=== PATIENT | male | born 1965 | race African-American/Black ===

== ENCOUNTER 2017-05-01 09:06 | Emergency (ER) | payer MEDICARE, OTHER ==
[~2017-05-01] VITALS: Ht 195.6 cm; Wt 130.0 kg
[~2017-05-01 09:06] MED LIST: AMLO5TAB66 PO; CLON0.5T PO; FLUO20CA30 PO; VERA-7 PO
[2017-05-01] MEDS ORDERED: LISI-660 PO (09:15)
[2017-05-01] MEDS ORDERED: KETOROLAC TROMETHAMINE 30 MG/ML VIAL IVP ONE (10:30)
[2017-05-01] MEDS ORDERED: LORazepam 2 MG/ML VIAL IVP ONE (10:30)
[2017-05-01] MEDS ORDERED: IBUPROFEN 800 MG TABLET PO ONE (10:45)
[2017-05-01] MEDS ORDERED: LORazepam 1 MG TABLET PO ONE (10:45)
[2017-05-01 11:02] LABS: BASOPHILS % (AUTO) 0.1 % (0.0-2.0); HEMATOCRIT 38.4 % (41-53); HEMOGLOBIN 13.4 g/dL (13.5-17.5); LYMPHOCYTES # (AUTO) 2.3 K/uL (1.0-4.8); LYMPHOCYTES % (AUTO) 44.7 % (22.0-44.0); MEAN CORPUSCULAR HEMOGLOBIN 34.4 pg (26.0-34.0); MEAN CORPUSCULAR VOLUME 98 fL (80-100); MONOCYTES # (AUTO) 0.5 K/uL (0.1-1.0); MONOCYTES % (AUTO) 10.6 % (2.0-9.0); NEUTROPHILS # (AUTO) 2.3 K/uL (1.8-7.7); NEUTROPHILS % (AUTO) 43.6 % (40.0-70.0); PLATELET COUNT (AUTO) 204 K/uL (150-450); RED BLOOD CELL COUNT(AUTO) 3.91 MIL/uL (4.50-5.90); RED CELL DISTRIBUTION WIDTH 13.6 % (11.5-14.5)
[2017-05-01 11:06] LABS: ANION GAP 6 mmol/L (8-16); CALCIUM, TOTAL 8.6 mg/dL (8.8-10.5); CARBON DIOXIDE 33 mmol/L (22-29); CHLORIDE 105 mmol/L (98-107); CREATININE 1.03 mg/dL (0.60-1.30); GLOMERULAR FILTR. RATE CALC > 60 mL/min (>60); GLUCOSE,RANDOM 99 mg/dL (70-110); POTASSIUM 3.1 mmol/L (3.5-5.1); SODIUM SERUM 144 mmol/L (136-145); UREA NITROGEN, BLOOD 14 mg/dL (7-18)
[2017-05-01 11:13] LABS: PROTHROMBIN TIME 10.5 SEC (9.4-11.6)
[2017-05-01 11:30] LABS: ALANINE AMINOTRANSFERASE 32 U/L (12-78); ALBUMIN 3.7 g/dL (3.4-5.0); ALKALINE PHOSPHATASE 53 U/L (46-116); ASPARTATE AMINOTRANSFERASE 24 U/L (15-37); BILIRUBIN,TOTAL 0.3 mg/dL (0.1-1.0); CREATINE KINASE MB 3.2 ng/mL (0-5); CREATINE KINASE, TOTAL 430 U/L (39-308); TOTAL PROTEIN, SERUM 7.7 g/dL (6.4-8.2)
[2017-05-01 11:34] LABS: B-TYPE NATRIURETIC PEPTIDE 18 pg/mL (0-100)
[2017-05-01] MEDS ORDERED: POTASSIUM CHLORIDE 20 MEQ ER TABLET PO ONE (12:30)
[2017-05-01 13:00] LABS: APPEARANCE,URINE CLOUDY (CLEAR); BILIRUBIN,URINE NEGATIVE (NEGATIVE); GLUCOSE, URINE (UA) NEGATIVE (NEGATIVE); KETONES,URINE NEGATIVE (NEGATIVE); LEUKOCYTE ESTERASE ,URINE MODERATE (NEGATIVE); NITRATE,URINE NEGATIVE (NEGATIVE); OCCULT BLOOD,URINE TRACE (NEGATIVE); PH,URINE 7.5 (5.0-8.0); PROTEIN,URINE NEGATIVE (NEGATIVE); UROBILINOGEN,URINE 0.2 mg/dL (<=1.0)
[2017-05-01 13:04] LABS: BACTERIA,URINE Few /HPF (None Seen); RBC,URINE 0-2 /HPF (0-2); WBC,URINE 26-50 /HPF (0-5)
[2017-05-01 13:05] LABS: RENAL EPITHELIAL CELLS,URINE Rare /LPF (None Seen); SQUAMOUS EPITHELIAL CELL,UR Few /LPF (None Seen)
[2017-05-01 13:55] VITALS: BP 140/78
== END 2017-05-01 14:05 | disposition home or self-care (01) ==
LOC: EMS 09:07
DX: R42 Dizziness and giddiness (principal); F41.9 Anxiety disorder, unspecified; E87.6 Hypokalemia; G89.29 Other chronic pain; N39.0 Urinary tract infection, site not specified; F32.9 Major depressive disorder, single episode, unspecified; I10 Essential (primary) hypertension
CPT/HCPCS: 87086; 93005; 99285

== ENCOUNTER 2018-01-31 11:25 | Emergency (ER) | payer MEDICARE ==
[~2018-01-31] VITALS: Ht 195.6 cm; Wt 124.1 kg
[~2018-01-31 11:25] MED LIST changes: -CLON0.5T PO; -FLUO20CA30 PO; +LISI-660 PO; -VERA-7 PO
[2018-01-31 12:20] VITALS: BP 139/89
[2018-01-31] MEDS ORDERED: KETOROLAC TROMETHAMINE 10 MG TABLET PO ONE (12:30)
== END 2018-01-31 13:40 | disposition home or self-care (01) ==
LOC: EMS 11:27
DX: M76.9 Unspecified enthesopathy, lower limb, excluding foot (principal); M25.532 Pain in left wrist; I10 Essential (primary) hypertension
CPT/HCPCS: 99284

== ENCOUNTER 2019-01-31 12:09 | Emergency (ER) | payer MEDICARE, OTHER ==
[~2019-01-31] VITALS: Ht 195.6 cm; Wt 119.5 kg
[2019-01-31 14:03] VITALS: BP 103/71
[2019-01-31] MEDS ORDERED: IBUPROFEN 800 MG TABLET PO ONE (15:00)
== END 2019-01-31 15:09 | disposition home or self-care (01) ==
LOC: EMS 12:10
DX: S92.312A Displaced fracture of first metatarsal bone, left foot, initial encounter for closed fracture (principal); F32.9 Major depressive disorder, single episode, unspecified; F41.9 Anxiety disorder, unspecified; I10 Essential (primary) hypertension; Z79.899 Other long term (current) drug therapy; W20.8XXA Other cause of strike by thrown, projected or falling object, initial encounter; Y93.89 Activity, other specified; Y92.89 Other specified places as the place of occurrence of the external cause; Y99.8 Other external cause status